=== PATIENT | female | born 1955 | race Caucasian/White ===

== ENCOUNTER 2018-12-30 11:19 | Emergency (ER) | payer OTHER ==
[~2018-12-30] VITALS: Ht 157.5 cm; Wt 54.4 kg
[2018-12-30] MEDS ORDERED: SIMVASTATIN20 MG (12:11)
== END 2018-12-30 18:08 | disposition home or self-care (01) ==
LOC: ER 11:19 → CPU-OBS 11:22 → ER 11:22
DX: R07.89 Other chest pain (principal); M94.0 Chondrocostal junction syndrome [Tietze]; K29.70 Gastritis, unspecified, without bleeding